=== PATIENT | female | born 1955 | race Caucasian/White ===

== ENCOUNTER → 2018-04-19 | Outpatient (CLI) | payer OTHER ==
[~2018-04-19] MED LIST: ACET500T33 PO; ASPI325T8 PO; CLON0.5T11 PO; HYDR50CA PO; ISOS60TA2 PO; LEVO125T PO; NITR100C PO; POTA10TA PO
--- NOTE | 2018-04-20 09:39 | RAD ---
DATE: 04/19/2018 EXAM: DIGITAL SCREEN BILAT W/CAD HISTORY: Routine screening COMPARISON: 12/29/2012 This study was interpreted with the benefit of Computerized Aided Detection (CAD). Breast Density: SCATTERED The breast parenchyma shows scattered fibroglandular densities. Breast parenchyma level B. FINDINGS: An old breast biopsy marker is present laterally in the right breast. The fibroglandular tissues are heterogeneous. On the cc view of the right breast there is a nodular opacity projected over the mid breast. This is not clearly seen on the oblique view. No other suspicious breast densities are seen. Benign type calcifications are present on the right. No malignant type microcalcifications are evident. IMPRESSION: Possible right breast nodule. Additional views including spot compression cc and tomosynthesis imaging on the right is suggested. If a true nodule is identified mammographically, ultrasound examination would then be indicated. BI-RADS CATEGORY: 0 INCOMPLETE: NEEDS ADDITIONAL IMAGING EVALUATION AND/OR PRIOR MAMMOGRAMS FOR COMPARISON. RECOMMENDED FOLLOW-UP: ADD ADDITIONAL IMAGING PQRS compliance statement: Patient information was entered into a reminder system with a target due date for the next mammogram. Mammography is a sensitive method for finding small breast cancers, but it does not detect them all and is not a substitute for careful clinical examination. A negative mammogram does not negate a clinically suspicious finding and should not result in delay in biopsying a clinically suspicious abnormality. "Our facility is accredited by the [employer] Mammography Program."
== END | disposition home or self-care (01) ==
LOC: MAMMO 13:57
PROVIDERS: ATTEND Family Medicine
DX: Z12.31 Encounter for screening mammogram for malignant neoplasm of breast (principal)
CPT/HCPCS: 77067

== ENCOUNTER → 2018-06-01 | Outpatient (CLI) | payer OTHER ==
--- NOTE | 2018-06-06 11:05 | RAD ---
DATE: 06/01/2018 2:00 AM EXAM: BREAST RIGHT, DIGITAL DIAGNOSTIC RT HISTORY: further evaluation of a finding noted on her most recent screening mammographic examination. On that examination a mass was reported within the right breast COMPARISON: 04/19/2018, 12/19/2012, 02/04/2012 3-D tomographic view of the right breast was performed in the CC view. In addition 2-D spot compression views of the right breast in the CC projection was also obtained. This study was interpreted with the benefit of Computerized Aided Detection (CAD ). Breast Density: The breast parenchyma shows scattered fibroglandular densities. Breast parenchyma level B. MAMMOGRAM FINDINGS: The previously seen breast nodule is better identified with the spot compression images, well-circumscribed. Therefore this was further evaluated by ultrasound. Ultrasound technique: High-resolution grayscale and color Doppler sonographic evaluation of the right breast was performed in the region of mammographic abnormality. ULTRASOUND FINDINGS: Targeted ultrasound of the mammographic area of concern was performed. 12:00 position, 3 cm from the nipple: An anechoic avascular mass of circumscribed margins and round/oval shape is present. It demonstrates posterior acoustic enhancement and a parallel orientation. It measures 0.6 cm IMPRESSION: No mammographic evidence of malignancy. BI-RADS CATEGORY: 2 BENIGN FINDING(S) RECOMMENDED FOLLOW-UP: 12M 12 MONTH FOLLOW-UP Annual screening mammography is recommended, unless clinically indicated sooner based on symptoms or change in physical exam. PQRS compliance statement: Patient information was entered into a reminder system with a target due date 04/20/2019 for the next mammogram. Mammography is a sensitive method for finding small breast cancers, but it does not detect them all and is not a substitute for careful clinical examination. A negative mammogram does not negate a clinically suspicious finding and should not result in delay in biopsying a clinically suspicious abnormality. "Our facility is accredited by the [employer] Mammography [employer]." JOED
== END | disposition home or self-care (01) ==
LOC: MAMMO 13:21
PROVIDERS: ATTEND Family Medicine
DX: N63.11 Unspecified lump in the right breast, upper outer quadrant (principal)
CPT/HCPCS: 76641; 77065

== ENCOUNTER → 2020-09-10 | Outpatient (CLI) | payer MEDICAID ==
[~2020-09-10] MED LIST changes: -CLON0.5T11 PO; +CLON0.5T4 PO; -ISOS60TA2 PO; +ISOS60TA55 PO
--- NOTE | 2020-09-10 16:22 | RAD ---
DATE: 09/10/2020 11:40 AM EXAM: DIGITAL SCREEN BILAT W/CAD HISTORY: Screening COMPARISON: 04/19/2018 Bilateral full field craniocaudal and mediolateral oblique images were obtained using digital technique. This study was interpreted with the benefit of Computerized Aided Detection (CAD). FINDINGS: Breast Density: HETERO The breast parenchyma Is heterogeneously dense, which could reduce sensitivity of mammography. Breast parenchyma level C No suspicious masses, microcalcifications or architectural distortion is present to suggest malignancy in either breast. The visualized axillae are unremarkable. IMPRESSION: No mammographic evidence of malignancy. BI-RADS CATEGORY: 1 NEGATIVE RECOMMENDED FOLLOW-UP: 12M 12 MONTH FOLLOW-UP Annual screening mammography is recommended, unless clinically indicated sooner based on symptoms or change in physical exam. PQRS compliance statement: Patient information was entered into a reminder system with a target due date for the next mammogram. Mammography is a sensitive method for finding small breast cancers, but it does not detect them all and is not a substitute for careful clinical examination. A negative mammogram does not negate a clinically suspicious finding and should not result in delay in biopsying a clinically suspicious abnormality. "Our facility is accredited by the [employer] Mammography [employer]."
== END ==
LOC: MAMMO 11:14
PROVIDERS: ATTEND Family Medicine
DX: Z12.31 Encounter for screening mammogram for malignant neoplasm of breast (principal)
CPT/HCPCS: 77067

== ENCOUNTER → 2021-09-12 | Outpatient (CLI) | payer MEDICARE, MEDICAID ==
--- NOTE | 2021-09-12 15:56 | RAD ---
Digital Mammogram Bilateral History: Routine screening Technique: 2-D digital CC and MLO views were obtained. CAD - computer aided detection was utilize d. Comparison: Mammograms from 09/10/2020, the 06/01/2018, 04/19/2018.. Findings: Breast Tissue Density B : There are scattered areas of fibroglandular density There is a focal asymmetry in the inner right breast, 3:00 position, at posterior depth, approximatel y 6 to 7 cm from the nipple. There are a few faint punctate calcifications in the 12:00 position of t he left breast about 4 to 6 cm from the nipple. There are no suspicious areas of architectural distor tion. Impression: There is a focal asymmetry in the right inner breast and a group of calcifications in the left upper breast. These need further evaluation with a diagnostic bilateral mammogram. If the right focal asymm etry persists, targeted right breast ultrasound should also be performed. Assessment: BI-RADS 0. Incomplete. Additional imaging is recommended. Recommendation: Bilateral diagnostic mammogram, and right breast ultrasound, if needed. The patient be contacted with results and asked to schedule for additional imaging. The patient will receive a letter with the results in the mail. Patient information will be entered into the [facility] reminder system with a target recall date for the next mammogram. A reminder letter will be genera lina. Electronically signed by: Basia Dick MD (09/12/2021 3:54 PM) [id number]
== END ==
LOC: MAMMO 09:46
PROVIDERS: ATTEND Family Medicine
DX: Z12.31 Encounter for screening mammogram for malignant neoplasm of breast (principal)
CPT/HCPCS: 77067

== ENCOUNTER → 2021-09-22 | Outpatient (CLI) | payer MEDICARE, MEDICAID ==
--- NOTE | 2021-09-22 13:02 | RAD ---
DIAGNOSTIC BILATERAL BREAST MAMMOGRAM AND RIGHT BREAST ULTRASOUND TECHNIQUE: Spot compression right breast mammogram in the CC and MLO projection. Spot magnification l eft breast mammogram in the CC and MLO projection. Grayscale and color doppler ultrasound of the righ t breast. INDICATION: Callback for right breast asymmetry and left breast calcifications COMPARISON: 09/12/2021, 09/10/2020, 06/01/2018, 05/19/2018 FINDINGS: Breast Density: There are scattered areas of fibroglandular density. The asymmetry described in the right inner breast is less conspicuous on spot compression views. Spot magnification demonstrates a loose grouping of amorphous calcifications in the left upper breast pos terior third. Ultrasound evaluation of the right breast demonstrates an ovoid hypoechoic described, parallel mass m easuring 0.9 x 0.8 x 2.3 cm in the 1:30 radial 6 cm from the nipple. No abnormal color Doppler flow. IMPRESSION: 1. Grouping of left breast amorphous calcifications for which stereotactic biopsy is recommended. 2. Hypoechoic parallel circumscribed right breast mass measuring 0.9 cm is probably benign. Recommend short interval follow-up six-month right breast ultrasound. ASSESSMENT: BI-RADS 4: Suspicious for Malignancy. RECOMMENDATION: Stereotactic biopsy of left breast calcifications. Recommend 6 month short interval f ollow-up for probably benign right breast mass. The impression and recommendations are described to t he patient by the performing sheetmetal patternmaker/mammography and the patient will be scheduled for stere otactic biopsy. The facility will notify the patient of the results via mail. Patient information will be entered int o the mammography reminder system with a target recall date for the next mammogram. A reminder letter will be generated by the facility. Electronically signed by: Yogi Dumas MD (09/22/2021 12:59 PM) [id number]
== END ==
LOC: MAMMO 10:15
PROVIDERS: ATTEND Family Medicine
DX: N63.12 Unspecified lump in the right breast, upper inner quadrant (principal)
CPT/HCPCS: 76641; 77066